=== PATIENT | male | born 1985 | race Caucasian/White ===

== ENCOUNTER 2020-02-18 09:07 | Outpatient (CLI) | payer OTHER | END 2020-02-18 10:06 | disposition home or self-care (01) | LOC: LAB 09:07 | DX: R30.0 Dysuria (principal); N20.0 Calculus of kidney; M54.5 Low back pain; R31.29 Other microscopic hematuria; Z12.5 Encounter for screening for malignant neoplasm of prostate ==

== ENCOUNTER 2020-02-18 09:45 | Outpatient (CLI) | payer OTHER | END 2020-02-18 10:17 | disposition home or self-care (01) | LOC: SONOGRAMA 09:45 | DX: R31.9 Hematuria, unspecified (principal); R30.0 Dysuria; M54.5 Low back pain; N20.0 Calculus of kidney ==